=== PATIENT | male | born 1995 | race Caucasian/White ===

== ENCOUNTER 2017-10-31 06:41 | Emergency (ER) | payer BC ==
[~2017-10-31] VITALS: Ht 604 cm; Wt 61.4 kg
[2017-10-31 06:43] VITALS: BP 143/83
[2017-10-31] MEDS ORDERED: AMOX500C2 PO (07:05)
== END 2017-10-31 07:11 | disposition home or self-care (01) ==
LOC: ER 06:41
DX: K02.9 Dental caries, unspecified (principal); F12.90 Cannabis use, unspecified, uncomplicated; Z79.2 Long term (current) use of antibiotics; Z90.89 Acquired absence of other organs
CPT/HCPCS: 99284

== ENCOUNTER 2018-12-13 20:21 | Emergency (ER) | payer BC ==
[~2018-12-13] VITALS: Ht 177.8 cm; Wt 53.5 kg
--- NOTE | 2018-12-13 21:32 | NUR ---
Pt states that his blood sugar has been difficult to control, with variable highs and lows.
[2018-12-13 21:41] VITALS: BP 138/79
== END 2018-12-13 21:46 | disposition home or self-care (01) ==
LOC: ER 20:21
DX: R06.02 Shortness of breath (principal); R07.89 Other chest pain; F41.9 Anxiety disorder, unspecified; F12.90 Cannabis use, unspecified, uncomplicated; Z90.49 Acquired absence of other specified parts of digestive tract
CPT/HCPCS: 93005; 99283

== ENCOUNTER 2020-09-27 00:03 | Emergency (ER) | payer MEDICAID, OTHER ==
[~2020-09-27] VITALS: Ht 177.8 cm; Wt 65.9 kg
[2020-09-27 03:04] LABS: ALBUMIN 4.1 G/DL (3.4-5.0); ANION GAP 11 (8-16); BLOOD UREA NITROGEN 5 MG/DL (7-18); BUN/CREATININE RATIO 6.2 (5.4-32.0); CALCIUM 8.8 MG/DL (8.5-10.1); CHLORIDE 104 MMOL/L (99-107); CREATININE 0.81 MG/DL (0.60-1.10); GLUCOSE 109 MG/DL (70-104); POTASSIUM 3.8 MMOL/L (3.5-5.1); SODIUM 142 MMOL/L (135-145); TOTAL CARBON DIOXIDE 26.8 MMOL/L (24-32); eGFR > 90 ML/MIN
[2020-09-27 03:46] VITALS: BP 138/95
== END 2020-09-27 03:47 | disposition home or self-care (01) ==
LOC: ER 00:03
DX: R20.0 Anesthesia of skin (principal); H53.8 Other visual disturbances; G43.909 Migraine, unspecified, not intractable, without status migrainosus; R11.0 Nausea; F12.90 Cannabis use, unspecified, uncomplicated; Z72.89 Other problems related to lifestyle; Z90.49 Acquired absence of other specified parts of digestive tract
CPT/HCPCS: 36415; 80048; 83735; 93005; 99284

== ENCOUNTER 2021-01-21 00:46 | Emergency (ER) | payer MEDICAID ==
[~2021-01-21] VITALS: Ht 177.8 cm; Wt 71.8 kg
[2021-01-21 01:05] VITALS: BP 166/91
== END 2021-01-21 05:53 | disposition left against medical advice (07) ==
LOC: ER 00:47
DX: M79.605 Pain in left leg (principal); Z53.21 Procedure and treatment not carried out due to patient leaving prior to being seen by health care provider